=== PATIENT | male | born 1945 | race Caucasian/White ===

== ENCOUNTER 2016-07-26 18:17 | Observation (INO) | payer OTHER ==
[2016-07-26 18:31] VITALS: BMI 28.5
--- NOTE | 2016-07-26 18:43 | PDOC ---
[id number] No Limitations <Monika Almonte I - Last Filed: 07/26/16 20:17> <Bobby Mccracken - Last Filed: 08/02/16 07:10> - General Chief Complaint: Blood Pressure Problem Stated Complaint: HIGH BLOOD PRESSURE Time Seen by Provider: 07/26/16 18:23 - History of Present Illness Initial Comments: 07/26/16 19:28 This is a 71-year-old male with history of hypertension high cholesterol who comes in complaining of hypertension. Patient went to the pharmacy today and had his blood pressure taken and it was high so he came in for evaluation. In talking with the patient he also said that he has had over the last 2 weeks multiple episodes of intermittent lightheadedness associated with some chest discomfort. Patient denies any shortness of breath with it, any radiation and symptoms last from a few minutes to several hours. Patient said that it doesn't seem to be any association of exertion making it worse or affecting it. 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 Patient did not contact his feed and farm management adviser regarding these symptoms and has not been evaluated for these symptoms. Patient is complaining of some very mild chest discomfort at this time but no dizziness. On arrival in the emergency room patient's blood pressure was mildly elevated systolic 183 but shortly after arrival came down to 150 systolic. Patient said his pressure normally is high 140s systolic. PAST MEDICAL HISTORY: As per history of present illness PAST SURGICAL HISTORY: no significant history FAMILY HISTORY: no pertinant history SOCIAL HISTORY: Pt lives with family and is retired MEDICATIONS: reviewed ALLERGIES: As per nursing notes Review of Systems General: No fevers or chills, no weakness, no weight loss HEENT: No change in vision. No sore throat,. No ear pain CardioVascular: As per history of present illness Respiratory:No cough, or wheezing. Gastrointestinal: no nausea, vomitting, diarrhea or constipation, No rectal bleeding Genitourinary: No dysuria, hematuria, or frequency Musculoskeletal: No joint or muscle pain or swelling Neurologic: No headache, vertigo, dizziness or loss of consciousness Psychiatric: nor depression Skin: No rashes or easy bruising Endocrine: no increased thirst or abnormal weight change Allergic: no skin or latex allergy All other systems reviewed and normal Exam: General: Well-nourished well-developed individual, no acute distress HEENT: Throat: Normal, tonsils normal, no erythema or exudate Neck: Supple, no meningeal signs, no lymphadenopathy Eyes::Pupils equal reactive and round, extraocular motion intact Chest: Nontender to palpation Cardiac: S1-S2 normal, regular rate and rhythm, no murmurs rubs or gallops Respiratory: Lungs clear to auscultation bilateral Abdomen: Soft, nondistended, normal bowel sounds, nontender to palpation diffusely Extremities: Warm, dry, no cyanosis, clubbing, or edema Skin: No rashes Neuro: Alert and oriented x3, nonfocal exam, grossly intact, normal gait Psych: Normal mood and affect EKG normal sinus rhythm at a rate of 80, normal intervals no acute ST-T wave changes normal EKG (Monika Almonte I) Past History <Monika Almonte I - Last Filed: 07/26/16 20:17> - Past Medical History GI Disorders: Yes (IBS) HTN: Yes Hypercholesterolemia: Yes Other medical history: glucoma - Surgical History Abdominal Surgery: Yes (hernia sx 6 weeks ago) - Psycho/Social/Smoking Cessation Hx Anxiety: No Suicidal Ideation: No Smoking History: Former smoker Have you smoked in the past 12 months: No If you are a former smoker, when did you quit?: 1976 Information on smoking cessation initiated: No Hx Alcohol Use: No Drug/Substance Use Hx: No Substance Use Type: None <Bobby Mccracken - Last Filed: 08/02/16 07:10> - Past Medical History Allergies/Adverse Reactions: Allergies Allergy/AdvReac Type Severity Reaction Status Date / Time latex Allergy Rash Verified 07/26/16 18:22 Home Medications: Ambulatory Orders Aspirin [ASA -] 81 mg PO DAILY 07/26/16 Atorvastatin Ca [Lipitor] 20 mg PO HS 07/26/16 Folic Acid - 1 mg PO DAILY 07/26/16 [place]-3/Dha/Epa/Fish Oil [Fish Oil 1,000 mg Softgel] 1,000 mg PO ASDIR 07/26/16 Ramipril 10 mg PO DAILY 07/26/16 Timolol 0.5% [Timoptic 0.5%] 1 drop OU DAILY 07/26/16 - Vital Signs Last Vital Signs Temp Pulse Resp BP Pulse Ox 97.9 F 69 19 105/57 100 07/28/16 05:53 07/28/16 05:53 07/28/16 08:00 07/28/16 05:53 07/28/16 08:00 Heart Score/ECG Review - History History: Slightly suspicious - Electrocardiogram EKG: Normal - Age Age: >/= 65 - Risk Factors Risk Factors Heart Score: Yes Hx Hypercholesterolemia, Yes Hx Hypertension, Yes Positive family hx of cardiac disease Based on the list above the patient has:: >/=3 risk factors or Hx atherosclerotic disease - Troponin Troponin: </= normal limit - Score Heart Score - Total: 4 <Monika Almonte I - Last Filed: 07/26/16 20:17> ED Treatment Course - LABORATORY CBC & Chemistry Diagram: 07/26/16 19:13 07/26/16 19:13 <Monika Almonte I - Last Filed: 07/26/16 20:17> - LABORATORY CBC & Chemistry Diagram: 07/27/16 08:07 07/28/16 07:30 <Bobby Mccracken - Last Filed: 08/02/16 07:10> - ADDITIONAL ORDERS Additional order review: 07/26/16 19:13 RBC 5.15 MCV 86.7 MCHC 33.5 RDW 12.6 MPV 7.9 Neutrophils % 63.5 Lymphocytes % 20.6 Monocytes % 12.1 H Eosinophils % 3.4 Basophils % 0.4 - Medications Given in the ED: ED Medications Discontinued Medications Generic Name Dose Route Start Last Admin Trade Name Neftali PRN Reason Stop Dose Admin Aspirin 81 mg 07/27/16 10:00 07/28/16 10:47 Asa - PO 81 mg DAILY KAYKAY Administration Aspirin 162 mg 07/26/16 22:55 07/26/16 23:59 Asa - PO 07/26/16 22:56 162 mg ONCE ONE Administration Atorvastatin Calcium 20 mg 07/26/16 22:00 07/27/16 21:26 Lipitor - PO 20 mg HS KAYKAY Administration Folic Acid 1 mg 07/27/16 10:00 07/28/16 10:47 Folic Acid - PO 1 mg DAILY KAYKAY Administration Ramipril 10 mg 07/27/16 10:00 07/28/16 10:47 Altace - PO 10 mg DAILY KAYKAY Administration Timolol Maleate 1 drop 07/27/16 10:00 07/28/16 10:47 Timoptic 0.5% OU 1 drop DAILY KAYKAY Administration Medical Decision Making <Monika Almonte I - Last Filed: 07/26/16 20:17> <Bobby Mccracken - Last Filed: 08/02/16 07:10> - Medical Decision Making 08/02/16 07:10 Report received from the nurse. Vital signs stable. Signed out to Dr. Sapp 7 PM pending evaluation. (Bobby Mccracken) *DC/Admit/Observation/Transfer <Monika Almonte I - Last Filed: 07/26/16 20:17> <Bobby Mccracken - Last Filed: 08/02/16 07:10> Diagnosis at time of Disposition: Chest pain - Discharge Dispostion Disposition: HOME Condition at time of disposition: Good - Referrals
[2016-07-26 19:42] LABS: BASOPHIL 0.4 % (0-2.0); EOSINOPHIL 3.4 % (0-4.5); MCHC 33.5 g/dl (32.0-35.9); MEAN CELL VOLUME 86.7 fl (80-96); MEAN PLT VOLUME 7.9 fl (7.5-11.1); NEUTROPHILS 63.5 % (42.8-82.8); PLATELET COUNT 264 K/MM3 (134-434); RDW 12.6 % (11.9-15.9); WHITE BLOOD COUNT 5.3 K/mm3 (4.0-10.0)
[2016-07-26 19:49] LABS: ALBUMIN 4.2 g/dl (3.5-5.0); ALK PHOS 85 U/L (32-92); ANION GAP 12 (8-16); BILIRUBIN,TOTAL 0.9 mg/dl (0.2-1.0); CALCIUM 9.4 mg/dl (8.4-10.2); CO2 25 mmol/L (22-28); CREATININE 0.8 mg/dl (0.6-1.3); GLUCOSE,RANDOM 95 mg/dl (74-106); SGOT/AST 21 U/L (10-42); SGPT/ALT 19 U/L (10-40); TOT PROT 6.6 g/dl (6.4-8.3)
[2016-07-26 19:50] LABS: CPK(DFH) 74 IU/L (38-174)
[2016-07-26 20:01] LABS: TROPONIN I (DFP) < 0.03 ng/ml (0.03-0.50)
[2016-07-26 20:49] LABS: URINE APPEARANCE Clear; URINE BILIRUBIN Negative (NEGATIVE); URINE BLOOD Trace-intact (NEGATIVE); URINE COLOR YELLOW; URINE GLUCOSE (UA) Negative (NEGATIVE); URINE KETONE Negative (NEGATIVE); URINE LEUK ESTERASE Negative (NEGATIVE); URINE NITRITE Negative (NEGATIVE); URINE PROTEIN Negative (NEGATIVE); URINE UROBILINOGEN 0.2 E.U/dl (0.2-1.0)
--- NOTE | 2016-07-26 21:14 | HP ---
CHIEF COMPLAINT: Chest Pain, Elevated Blood Pressure PCP: Dr. Wolfgang Viera HISTORY OF PRESENT ILLNESS: This is a 71 y/o man with a past medical history of Hypertension, Hyperlipidemia , IBS, Glaucoma, Who presents to the emergency department with elevated BP and chest pain x today. Patient reports while having his BP checked at his pharmacy the machine read high. He reports having intermittent lightheadedness for several days with "chest discomfort." Patient reports missing his appointment for a stress test last April with his Medical Genetics Director. He reports taking his home meds as prescribed. Patient reports having a recent Hernia Repair x 6 weeks ago. Patient denies fever, chills, cough, AP, N/V/D, dysuria. ER course was notable for: (1) EKG NSR no ST or TWI (2) Cardiac Enzymes neg x1 (3) BP 183/98 ~120/67 Recent Travel: None PAST MEDICAL HISTORY: See HPI PAST SURGICAL HISTORY: Hernia Repair Social History: Smoking: Former < 1PPD, quit 1976 Alcohol: Occasional- Beer Drugs: None lives with his sister. 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 Family History: Father: Cardiac, age 49 Allergies latex Allergy (Verified 07/26/16 18:22) Rash HOME MEDICATIONS: Home Medications Medication Instructions Recorded Aspirin [ASA -] 81 mg PO DAILY 07/26/16 Atorvastatin Ca [Lipitor] 20 mg PO HS 07/26/16 Folic Acid - 1 mg PO DAILY 07/26/16 [place]-3/Dha/Epa/Fish Oil [Fish Oil 1,000 mg PO ASDIR 07/26/16 1,000 mg Softgel] Ramipril 10 mg PO DAILY 07/26/16 Timolol 0.5% [Timoptic 0.5%] 1 drop OU DAILY 07/26/16 REVIEW OF SYSTEMS CONSTITUTIONAL: Absent: fever, chills, diaphoresis, generalized weakness, malaise, loss of appetite, weight change HEENT: nasal congestion Absent: rhinorrhea, throat pain, throat swelling, difficulty swallowing, mouth swelling, ear pain, eye pain, visual changes CARDIOVASCULAR: chest pain, lightheadedness Absent: syncope, palpitations, irregular heart rate, peripheral edema RESPIRATORY: Absent: cough, shortness of breath, dyspnea with exertion, orthopnea, wheezing, stridor, hemoptysis GASTROINTESTINAL: Absent: abdominal pain, abdominal distension, nausea, vomiting, diarrhea, constipation, melena, hematochezia GENITOURINARY: Absent: dysuria, frequency, urgency, hesitancy, hematuria, flank pain, genital pain MUSCULOSKELETAL: Absent: myalgia, arthralgia, joint swelling, back pain, neck pain SKIN: Absent: rash, itching, pallor HEMATOLOGIC/IMMUNOLOGIC: Absent: easy bleeding, easy bruising, lymphadenopathy, frequent infections ENDOCRINE: Absent: unexplained weight gain, unexplained weight loss, heat intolerance, cold intolerance NEUROLOGIC: Absent: headache, focal weakness or paresthesias, dizziness, unsteady gait, seizure, mental status changes, bladder or bowel incontinence PSYCHIATRIC: Absent: anxiety, depression, suicidal or homicidal ideation, hallucinations. PHYSICAL EXAMINATION Vital Signs - 24 hr 07/26/16 07/26/16 07/26/16 18:21 19:00 19:30 Temperature 97.4 F L Pulse Rate 80 Pulse Rate [ 81 80 Apical] Respiratory 18 18 16 Rate Blood Pressure 183/98 Blood Pressure 150/88 148/81 [Arm] O2 Sat by Pulse 100 98 100 Oximetry (%) 07/26/16 20:15 Temperature Pulse Rate Pulse Rate [ 80 Apical] Respiratory 16 Rate Blood Pressure Blood Pressure 128/67 [Arm] O2 Sat by Pulse 100 Oximetry (%) GENERAL: Awake, alert, and fully oriented, in no acute distress. HEAD: Normal with no signs of trauma. EYES: Pupils equal, round and reactive to light, extraocular movements intact, sclera anicteric, conjunctiva clear. No lid lag. EARS, NOSE, THROAT: Ears normal, nares patent, oropharynx clear without exudates. Moist mucous membranes. NECK: Normal range of motion, supple without lymphadenopathy, JVD, or masses. LUNGS: Breath sounds equal, clear to auscultation bilaterally. No wheezes, and no crackles. No accessory muscle use. HEART: Regular rate and rhythm, normal S1 and S2 without murmur, rub or gallop. Non reproducible CP ABDOMEN: Soft, nontender, not distended, normoactive bowel sounds, no guarding, no rebound, no masses. No hepatomegaly or splenomegaly. MUSCULOSKELETAL: Normal range of motion at all joints. No bony deformities or tenderness. No CVA tenderness. UPPER EXTREMITIES: 2+ pulses, warm, well-perfused. No cyanosis. No clubbing. Cap refill <2 seconds. No peripheral edema. LOWER EXTREMITIES: 2+ pulses, warm, well-perfused. No calf tenderness. No peripheral edema. NEUROLOGICAL: Cranial nerves II-XII intact. Normal speech. Normal gait. PSYCHIATRIC: Cooperative. Good eye contact. Appropriate mood and affect. SKIN: Warm, dry, normal turgor, no rashes or lesions noted. Laboratory Results - last 24 hr 07/26/16 07/26/16 07/26/16 19:13 19:13 19:13 WBC 5.3 RBC 5.15 Hgb 15.0 Hct 44.7 MCV 86.7 MCHC 33.5 RDW 12.6 Plt Count 264 MPV 7.9 Neutrophils % 63.5 Lymphocytes % 20.6 Monocytes % 12.1 H Eosinophils % 3.4 Basophils % 0.4 Sodium 132 L Potassium 4.1 Chloride 95 L Carbon Dioxide 25 Anion Gap 12 BUN 9 Creatinine 0.8 Creat Clearance w eGFR > 60 Random Glucose 95 Calcium 9.4 Total Bilirubin 0.9 AST 21 ALT 19 Alkaline Phosphatase 85 Creatine Kinase 74 Troponin I < 0.03 L Total Protein 6.6 Albumin 4.2 Urine Color Urine Appearance Urine pH Ur Specific [place] Urine Protein Urine Glucose (UA) Urine Ketones Urine Blood Urine Nitrite Urine Bilirubin Urine Urobilinogen Ur Leukocyte Esterase 07/26/16 20:34 WBC RBC Hgb Hct MCV MCHC RDW Plt Count MPV Neutrophils % Lymphocytes % Monocytes % Eosinophils % Basophils % Sodium Potassium Chloride Carbon Dioxide Anion Gap BUN Creatinine Creat Clearance w eGFR Random Glucose Calcium Total Bilirubin AST ALT Alkaline Phosphatase Creatine Kinase Troponin I Total Protein Albumin Urine Color Yellow Urine Appearance Clear Urine pH 7.0 Ur Specific [place] 1.015 Urine Protein Negative Urine Glucose (UA) Negative Urine Ketones Negative Urine Blood Trace-intact Urine Nitrite Negative Urine Bilirubin Negative Urine Urobilinogen 0.2 e.u/dl Ur Leukocyte Esterase Negative ASSESSMENT/PLAN: This is a 71 y/o man with a PMHx of: HTN, HLD, IBS. Who presents to the ED with Chest Pain and elevated BP. Placed on Tele Observation for Chest Pain r/o ACS for further evaluation of their emergent condition. Plan: 1. Chest Pain r/o ACS - Continue cardiac monitoring - HEART Score 4 - JUNAID Score 3 - CE neg x1 - Serial Enzymes - Appreciate Cardiology Consult - Asa given now - Continue Asa - Echo in am for LVF, Valve Structure - EKG- NSR no ST or TWI - HgBA1C 2. Hypertension - Sub Optimal - Monitor BP - Monitor renal function - Continue Ramipril 3. HLD - Continue Lipitor, [place] 3 - Lipid Panel in am 4. IBS 5. FEN - PO Fluids - Replete lytes prn - Low Na Diet 6. DVT Prophylaxis - OOB - SCDs - Consider ACs if LOS > 48 hrs Code Status: Full Code Problem List - Problem (1) Chest pain Code(s): R07.9 - CHEST PAIN, UNSPECIFIED (2) HLD (hyperlipidemia) Code(s): E78.5 - HYPERLIPIDEMIA, UNSPECIFIED (3) Hypertension Code(s): I10 - ESSENTIAL (PRIMARY) HYPERTENSION (4) DVT prophylaxis Code(s): PSB9038 - Visit type - Emergency Visit Emergency Visit: Yes ED Registration Date: 07/26/16 Care time: The patient presented to the Emergency Department on the above date and was hospitalized for further evaluation of their emergent condition. - New Patient This patient is new to me today: Yes Date on this admission: 07/26/16 - Critical Care Critical Care patient: No
[2016-07-26] MEDS ORDERED: PATIENT'S OWN MEDICATION (NON-FORMULARY) (Omega-3/Dha/Epa/Fish Oil [Fish Oil 1,000 Mg Soft PO SCH (21:30)
[2016-07-26] MEDS ORDERED: ASPIRIN 81 MG CHEWABLE TABLETS PO ONE (22:55)
[2016-07-26] MEDS: ATORVASTATIN CA 20 MG TABLET (FP) PO SCH (23:02)
[2016-07-26 23:47] LABS: CPK(DFH) 63 IU/L (38-174)
[2016-07-26 23:53] LABS: TROPONIN I (DFP) < 0.03 ng/ml (0.03-0.50)
[2016-07-27 09:01] LABS: BASOPHIL 0.3 % (0-2.0); EOSINOPHIL 2.9 % (0-4.5); MCH 29.6 pg (25.7-33.7); MCHC 33.3 g/dl (32.0-35.9); MEAN CELL VOLUME 88.7 fl (80-96); NEUTROPHILS 66.5 % (42.8-82.8); PLATELET COUNT 250 K/MM3 (134-434); RDW 12.3 % (11.9-15.9); WHITE BLOOD COUNT 4.9 K/mm3 (4.0-10.0)
[2016-07-27 09:25] LABS: CPK(DFH) 60 IU/L (38-174)
[2016-07-27 09:26] LABS: CALCIUM 9.6 mg/dl (8.4-10.2); CREATININE 0.7 mg/dl (0.6-1.3); MAGNESIUM 1.9 mg/dL (1.8-2.4); PHOSPHOROUS 3.9 mg/dl (2.5-4.6)
[2016-07-27 09:30] LABS: CHOLESTEROL 121 mg/dl
[2016-07-27 10:06] LABS: TROPONIN I (DFP) < 0.03 ng/ml (0.03-0.50)
[2016-07-27] MEDS ORDERED: PT OWN MED DRAWER 7, Y5N ONE (10:11)
[2016-07-27] MEDS: RAMIPRIL 5 MG CAPSULE (FP) PO SCH (10:41)
[2016-07-27] MEDS: ASPIRIN 81 MG CHEWABLE TABLETS PO SCH (10:41)
[2016-07-27] MEDS: TIMOLOL 0.5% OPHTHALMIC SOL 5 ML BOTTLE OU SCH (10:41)
[2016-07-27] MEDS: FOLIC ACID 1 MG TABLET (FP) PO SCH (10:41)
--- NOTE | 2016-07-27 12:20 | PN ---
[id number] the discomfort occurs intermittently throughout the day while at rest. OBJECTIVE: patient is a 71 y/o man with a past medical history of Hypertension , Hyperlipidemia, IBS, Glaucoma. past surgical history of inginual hernia repair (06/01). patient was admitted from the emergency department to observation for chest pain r/o acs Vital Signs Period Temp Pulse Resp BP Sys/Mcdonnell Pulse Ox Last 24 Hr 97.8 F-97.9 F 73-76 18-18 156-173/83-92 99-100 GENERAL: The patient is awake, alert, and fully oriented, in no acute distress. HEAD: Normal with no signs of trauma. EYES: PERRL, extraocular movements intact, sclera anicteric, conjunctiva clear. No ptosis. ENT: Ears normal, nares patent, oropharynx clear without exudates, moist mucous membranes. NECK: Trachea midline, full range of motion, supple. LUNGS: Breath sounds equal, clear to auscultation bilaterally, no wheezes, no crackles, no accessory muscle use. HEART: Regular rate and rhythm, S1, S2 without murmur, rub or gallop. ABDOMEN: Soft, nontender, nondistended, normoactive bowel sounds, no guarding, no rebound, no hepatosplenomegaly, no masses. EXTREMITIES: 2+ pulses, warm, well-perfused, no edema. NEUROLOGICAL: Cranial nerves II through XII grossly intact. Normal speech, gait not observed. PSYCH: Normal mood, normal affect. SKIN: Warm, dry, normal turgor, no rashes or lesions noted Laboratory Results - last 24 hr 07/26/16 07/27/16 07/27/16 23:30 08:07 08:07 WBC 4.9 RBC 5.08 Hgb 15.0 Hct 45.0 MCV 88.7 MCHC 33.3 RDW 12.3 Plt Count 250 MPV 8.0 Neutrophils % 66.5 Lymphocytes % 18.7 Monocytes % 11.6 H Eosinophils % 2.9 Basophils % 0.3 Sodium 133 L Potassium 4.3 Chloride 98 Carbon Dioxide 27 Anion Gap 8 BUN 8 Creatinine 0.7 Random Glucose 98 Calcium 9.6 Phosphorus 3.9 Magnesium 1.9 Creatine Kinase 63 Troponin I < 0.03 L Triglycerides Cholesterol Total LDL Cholesterol HDL Cholesterol 07/27/16 07/27/16 08:07 08:07 WBC RBC Hgb Hct MCV MCHC RDW Plt Count MPV Neutrophils % Lymphocytes % Monocytes % Eosinophils % Basophils % Sodium Potassium Chloride Carbon Dioxide Anion Gap BUN Creatinine Random Glucose Calcium Phosphorus Magnesium Creatine Kinase 60 Troponin I < 0.03 L Triglycerides 65 Cholesterol 121 Total LDL Cholesterol 68 HDL Cholesterol 40 Active Medications Generic Name Dose Route Start Last Admin Trade Name Freq PRN Reason Stop Dose Admin Aspirin 81 mg 07/27/16 10:00 07/27/16 10:41 Asa - PO 81 mg DAILY KAYKAY Administration Atorvastatin Calcium 20 mg 07/26/16 22:00 07/26/16 23:02 Lipitor - PO 20 mg HS KAYKAY Administration Folic Acid 1 mg 07/27/16 10:00 07/27/16 10:41 Folic Acid - PO 1 mg DAILY KAYKAY Administration Non-Formulary Medication 1,000 mg 07/26/16 21:30 [place]-3/Dha/Epa/Fish Oil [Fish Oil 1,000 Mg Softgel] PO ASDIR KAYKAY Ramipril 10 mg 07/27/16 10:00 07/27/16 10:41 Altace - PO 10 mg DAILY KAYKAY Administration Timolol Maleate 1 drop 07/27/16 10:00 07/27/16 10:41 Timoptic 0.5% OU 1 drop DAILY KAYKAY Administration ASSESSMENT/PLAN: 1. card Chest Pain r/o ACS - no dysrhythmias noted on continuous cardiac monitoring - Troponin 3 WNL - Pending echo - Continue aspirin - Repeat EKG normal sinus rhythm, no ischemic changes - Heart score 4 appreciate cardiology input Hypertension - continue ramipril, strict b/p monitoring HLD - Continue Lipitor, [place] 3 - Lipid Panel WNL 2) GI IBS, no acute Exacerbation at this time FEN - PO Fluids - Replete lytes prn - Low Na Diet DVT Prophylaxis - OOB - SCDs - Consider ACs if LOS > 48 hrs Code Status: Full Code Visit type - Emergency Visit Emergency Visit: Yes ED Registration Date: 07/26/16 Care time: The patient presented to the Emergency Department on the above date and was hospitalized for further evaluation of their emergent condition. - New Patient This patient is new to me today: No - Critical Care Critical Care patient: No - Discharge Referral Referred to [facility] Med P.C.: No
--- NOTE | 2016-07-27 15:53 | EKG ---
Test Reason : Blood Pressure : / mmHG Vent. Rate : 096 BPM Atrial Rate : 096 BPM P-R Int : 180 ms QRS Dur : 098 ms QT Int : 352 ms P-R-T Axes : 069 -05 049 degrees QTc Int : 444 ms NORMAL SINUS RHYTHM WHEN COMPARED WITH ECG OF 26-JUL-2016 18:26, NO SIGNIFICANT CHANGE WAS FOUND Confirmed by MD RAANA MARJORY ([id number]) on 07/27/2016 3:53:00 PM Referred By: RANDALL VARGHESE Confirmed By:PAULA ARANA MD
--- NOTE | 2016-07-27 15:54 | EKG ---
Test Reason : Blood Pressure : / mmHG Vent. Rate : 080 BPM Atrial Rate : 080 BPM P-R Int : 184 ms QRS Dur : 098 ms QT Int : 374 ms P-R-T Axes : 053 -13 046 degrees QTc Int : 431 ms NORMAL SINUS RHYTHM NO PREVIOUS ECGS AVAILABLE Confirmed by MD YASMEEN, PAULA ([id number]) on 07/27/2016 3:53:40 PM Referred By: EH Confirmed By:PAULA ARANA MD
--- NOTE | 2016-07-27 17:10 | CON.CARD ---
Cardiology Consult (text) - Consultation Consultation Note: CC: HTN/CP 71 y/o with h/o Hypertension, Hyperlipidemia, IBS, Glaucoma p/w HTN. , Checked bp at pharmacy and it was elevated, asx at the time. BP 183/98 on arrival to ER. Received first dose of home ramipril today with improvement in bp. Over past week has had intermittent episodes of lightheadedness with associated chest discomfort, non-exertional. BP at the time of symptoms was normal. Had been scheduled for stress test last April with his Director Of Compliance, but did not go. (Was asx, gets yearly screening stress test - never has had positive result) He reports taking his home meds as prescribed. Has been ambulating less since his hernia surgery 6 weeks ago, but no exertional sx's. No orthopnea, pnd, sob, le edema, bleeding, palps, claudication or transient neurologic sx's. + chronic nasal congestion. + chronic constipation Patient denies fever, chills, cough, N/V/D, headache, visual disturbances, rashes. pmhx/Pshx: per hpi, additionally inguinal Hernia Repair 6 weeks ago. Pain well controlled. social hx: former smoker, occ beer, no illicits. fam hx: Father: Cardiac, age 49 ros: per hpi Ambulatory Orders Aspirin [ASA -] 81 mg PO DAILY 07/26/16 Atorvastatin Ca [Lipitor] 20 mg PO HS 07/26/16 Folic Acid - 1 mg PO DAILY 07/26/16 [place]-3/Dha/Epa/Fish Oil [Fish Oil 1,000 mg Softgel] 1,000 mg PO ASDIR 07/26/16 Ramipril 10 mg PO DAILY 07/26/16 Timolol 0.5% [Timoptic 0.5%] 1 drop OU DAILY 07/26/16 Current Medications Aspirin (Asa -) 81 mg PO DAILY [facility] Last Admin: 07/27/16 10:41 Dose: 81 mg Atorvastatin Calcium (Lipitor -) 20 mg PO [facility] Last Admin: 07/26/16 23:02 Dose: 20 mg Folic Acid (Folic Acid -) 1 mg PO DAILY [facility] Last Admin: 07/27/16 10:41 Dose: 1 mg Ramipril (Altace -) 10 mg PO DAILY [facility] Last Admin: 07/27/16 10:41 Dose: 10 mg Timolol Maleate (Timoptic 0.5%) 1 drop OU DAILY KAYKAY Last Admin: 07/27/16 10:41 Dose: 1 drop Vital Signs - 24 hr 07/26/16 07/26/16 07/26/16 18:21 19:00 19:30 Temperature 97.4 F L Pulse Rate 80 Pulse Rate [ 81 80 Apical] Respiratory 18 18 16 Rate Blood Pressure 183/98 Blood Pressure 150/88 148/81 [Arm] O2 Sat by Pulse 100 98 100 Oximetry (%) 07/26/16 07/26/16 07/26/16 20:15 22:00 22:53 Temperature 97.9 F 97.9 F Pulse Rate 76 76 Pulse Rate [ 80 Apical] Respiratory 16 18 18 Rate Blood Pressure 173/92 173/92 Blood Pressure 128/67 [Arm] O2 Sat by Pulse 100 100 100 Oximetry (%) 07/27/16 07/27/16 07/27/16 02:00 05:10 06:00 Temperature 97.8 F 97.8 F Pulse Rate 75 73 Pulse Rate [ Apical] Respiratory 18 18 Rate Blood Pressure 160/83 156/84 Blood Pressure [Arm] O2 Sat by Pulse 99 Oximetry (%) 07/27/16 07/27/16 07/27/16 06:31 08:17 14:38 Temperature 97.5 F L Pulse Rate 67 Pulse Rate [ Apical] Respiratory 18 18 Rate Blood Pressure 135/62 Blood Pressure [Arm] O2 Sat by Pulse 100 100 100 Oximetry (%) NAD, calm. comfortable lying flat JVD flat, neck supple ctab, nl effort rrr nl s1, s2 no m/r/g + bs soft nt nd ext without e/c/c + dp/pt aaox3 no jaundice, diaphoresis CBC, BMP 07/27/16 08:07 07/27/16 08:07 Laboratory Tests 07/26/16 07/26/16 07/26/16 19:13 19:13 23:30 Magnesium Total Bilirubin 0.9 AST 21 ALT 19 Alkaline Phosphatase 85 Troponin I < 0.03 L < 0.03 L Albumin 4.2 Triglycerides Cholesterol Total LDL Cholesterol HDL Cholesterol 07/27/16 07/27/16 07/27/16 08:07 08:07 08:07 Magnesium 1.9 Total Bilirubin AST ALT Alkaline Phosphatase Troponin I < 0.03 L Albumin Triglycerides 65 Cholesterol 121 Total LDL Cholesterol 68 HDL Cholesterol 40 EKG: nsr, early r wave progression. no ischemic changes. tele: SR, no alarms echo: nl LV (tds to exclude subtle RWMA). Nl RV. no sig valvular ab. cxr: clear lung sorenson 71 y/o with h/o Hypertension, Hyperlipidemia, IBS, Glaucoma p/w HTN. CP/dizziness - atypical chest discomfort intermittent x 1 week, non-exertional - cardiac enz neg x 3. EKG unremarkable. Low suspicion for acs. Discussed with his outpatient test lead and he will be able to fit patient in mon or tues for evaluation and stress test. - would get orthostatic vitals to assess dizziness. further work up per pmd - con't asa, statin HTN - currently well controlled on home ramipril. If increases again on f/u vitals (last was from this afternoon) can uptitrate regimen. HL - con't statin OK to d/c from CV perspective with outpatient f/u with test lead as discussed above. Patient to be counseled to return to ER if he develops recurrence of chest discomfort prior to evaluation.
[2016-07-27] MEDS: ATORVASTATIN CA 20 MG TABLET (FP) PO SCH (21:26)
[2016-07-28 05:54] VITALS: BP 105/57; PULSE 69; TEMP 97.9
--- NOTE | 2016-07-28 08:12 | PN ---
Progress Note, Physician Chief Complaint: cp History of Present Illness: denies any further chest "discomfort"; no dizziness (ambulating within his room); no sob, palpit - Current Medication List Current Medications: Active Medications Aspirin (Asa -) 81 mg PO DAILY [facility] Last Admin: 07/27/16 10:41 Dose: 81 mg Atorvastatin Calcium (Lipitor -) 20 mg PO HS [facility] Last Admin: 07/27/16 21:26 Dose: 20 mg Folic Acid (Folic Acid -) 1 mg PO DAILY [facility] Last Admin: 07/27/16 10:41 Dose: 1 mg Ramipril (Altace -) 10 mg PO DAILY [facility] Last Admin: 07/27/16 10:41 Dose: 10 mg Timolol Maleate (Timoptic 0.5%) 1 drop OU DAILY [facility] Last Admin: 07/27/16 10:41 Dose: 1 drop - Objective Vital Signs: Vital Signs Temperature 97.9 F 07/28/16 05:53 Pulse Rate 69 07/28/16 05:53 Respiratory Rate 19 07/28/16 05:53 Blood Pressure 105/57 07/28/16 05:53 O2 Sat by Pulse Oximetry (%) 100 07/28/16 05:53 Constitutional: Yes: Well Nourished, No Distress, Calm Cardiovascular: Yes: Regular Rate and Rhythm, S1, S2. No: Gallop, Murmur Respiratory: Yes: Regular, CTA Bilaterally. No: Accessory Muscle Use, Rales, Wheezes Extremities: No: Cold Edema: No Neurological: Yes: Alert, Oriented Psychiatric: No: Agitated Labs: CBC, BMP 07/27/16 08:07 07/27/16 08:07 - ....Imaging EKG: Other (tele: NSR) Assessment/Plan echo: nl LV (tds to exclude subtle RWMA). Nl RV. no sig valvular ab. cxr: clear lung sorenson 71 y/o with h/o Hypertension, Hyperlipidemia, IBS, Glaucoma p/w HTN. CP/dizziness - atypical chest discomfort intermittent x 1 week, non-exertional - cardiac enz neg x 3. EKG unremarkable. Low suspicion for acs. - Dr. 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 - suspect elevation to 180s syst on DOA may have been reactive to cp +/- anxiety HL - con't statin ok for d/c from [facility] p.o.v.
[2016-07-28 08:51] LABS: CALCIUM 9.4 mg/dl (8.4-10.2); CREATININE 0.7 mg/dl (0.6-1.3)
[2016-07-28] MEDS: FOLIC ACID 1 MG TABLET (FP) PO SCH (10:47)
[2016-07-28] MEDS: TIMOLOL 0.5% OPHTHALMIC SOL 5 ML BOTTLE OU SCH (10:47)
[2016-07-28] MEDS: ASPIRIN 81 MG CHEWABLE TABLETS PO SCH (10:47)
[2016-07-28] MEDS: RAMIPRIL 5 MG CAPSULE (FP) PO SCH (10:47)
--- NOTE | 2016-07-28 11:23 | DS ---
Physical Exam: SUBJECTIVE: Patient seen and examined OBJECTIVE: Vital Signs Period Temp Pulse Resp BP Sys/Mcdonnell Pulse Ox Last 24 Hr 97.5 F-98.3 F 62-69 18-19 105-141/57-76 100-100 PHYSICAL EXAM GENERAL: The patient is awake, alert, and fully oriented, in no acute distress. HEAD: Normal with no signs of trauma. EYES: PERRL, extraocular movements intact, sclera anicteric, conjunctiva clear. ENT: Ears normal, nares patent, oropharynx clear without exudates, moist mucous membranes. NECK: Trachea midline, full range of motion, supple. LUNGS: Breath sounds equal, clear to auscultation bilaterally, no wheezes, no crackles, no accessory muscle use. HEART: Regular rate and rhythm, S1, S2 without murmur, rub or gallop. ABDOMEN: Soft, nontender, nondistended, normoactive bowel sounds, no guarding, no rebound, no hepatosplenomegaly, no masses. EXTREMITIES: 2+ pulses, warm, well-perfused, no edema. NEUROLOGICAL: Cranial nerves II through XII grossly intact. Normal speech, gait not observed. PSYCH: Normal mood, normal affect. SKIN: Warm, dry, normal turgor, no rashes or lesions noted. LABS Laboratory Results - last 24 hr 07/28/16 07:30 Sodium 133 L Potassium 4.3 Chloride 100 Carbon Dioxide 27 Anion Gap 6 L BUN 7 Creatinine 0.7 Random Glucose 113 H Calcium 9.4 HOSPITAL COURSE: Date of Admission:07/26/16 Date of Discharge: 07/28/16 71 y/o man with a past medical history of Hypertension, Hyperlipidemia, IBS, Glaucoma, Who presents to the emergency department with elevated BP and chest pain . Patient reports while having his BP checked at his pharmacy the machine read high. He reports having intermittent lightheadedness for several days with "chest discomfort." Patient reports missing his appointment for a stress test last April with his Manager Ster[employer]. He reports taking being compliant with his meds, In the ER, labs were drawn, troponin was negative, cardiology was consulted to assist with management and it was found that his chest pain was atypical and low suspicion for acs, cardiac enzymes have been negative x 3. EKG unremarkable. Patient denies any CP at time of D/C, cleared for D/c by cardiology with the instruction to f/u with cardiology for outpt stress test. patient D/c home in stable condition, denies CP, SOB, denies fever or chills, he was instructed to return to ER if any reccurrent CP accompanied by SOB, he verbalized understanding. Minutes to complete discharge: 35 Discharge Summary Reason For Visit: CHEST PAIN TELE Current Active Problems Chest pain (Acute) DVT prophylaxis (Acute) HLD (hyperlipidemia) (Acute) Hypertension (Acute) Condition: Good - Instructions Diet, Activity, Other Instructions: As tolerated F/u with cardiology in 1 week for outpatient stress test Return to ER if any CP/SOB Disposition: HOME - Home Medications Comprehensive Discharge Medication List: Ambulatory Orders Aspirin [ASA -] 81 mg PO DAILY 07/26/16 Atorvastatin Ca [Lipitor] 20 mg PO HS 07/26/16 Folic Acid - 1 mg PO DAILY 07/26/16 Gay-3/Dha/Epa/Fish Oil [Fish Oil 1,000 mg Softgel] 1,000 mg PO ASDIR 07/26/16 Ramipril 10 mg PO DAILY 07/26/16 Timolol 0.5% [Timoptic 0.5%] 1 drop OU DAILY 07/26/16 This patient is new to me today: Yes Date on this admission: 07/28/16 Emergency Visit: Yes ED Registration Date: 07/26/16 Care time: The patient presented to the Emergency Department on the above date and was hospitalized for further evaluation of their emergent condition. Critical Care patient: No - Discharge Referral Referred to [facility] Yes Physician Referral: Karlos Queen MD (Int Med)
== END 2016-07-28 12:00 | disposition home or self-care (01) ==
LOC: FER 18:17 → FM/S 21:19
PROVIDERS: ADMIT Internal Medicine
DX: R07.89 Other chest pain (principal); I10 Essential (primary) hypertension; E78.00 Pure hypercholesterolemia, unspecified; K58.8 Other irritable bowel syndrome; H40.89 Other specified glaucoma
CPT/HCPCS: 36415; 71010-TC; 80048; 80053; 80061; 81003; 82550; 83036; 83735; 84100; 84484; 85025; 93005; 93306-TC; 99284-25; G0378